=== PATIENT | female | born 1985 | race Hispanic/Latino ===

== ENCOUNTER 2019-06-18 13:15 | Day surgery (SDC) | payer OTHER ==
[2019-06-18 13:48] VITALS: BP 111/65; TEMP 98; BMI 27.9
[2019-06-18] MEDS ORDERED: hydrALAZINE 20 MG/ML VIAL SLOW IVP PRN (14:38)
--- NOTE | 2019-06-18 14:50 | PDOC.LDHP ---
Labor and Delivery H&P Allergies/Adverse Reactions: Allergies Allergy/AdvReac Type Severity Reaction Status Date / Time No Known Allergies Allergy Verified 06/18/19 13:39
[2019-06-18 15:48] LABS: Bacteria/HPF None Seen HPF (None Seen); Bilirubin Negative (Negative); Blood, Urine Negative (Negative); Clarity Clear (Clear); Glucose, Urine (Dipstick) Normal (Negative); Leukocyte Negative Leu/uL (Negative); Nitrite Negative (Negative); Protein, Urine (Dipstick) Negative (Neg-Trace); RBC/HPF 0-3 HPF (0-3); Squamous Epithelial 0-3 HPF (0-3); Urobilinogen Normal mg/dL (Less than 2); WBC/HPF 0-3 HPF (0-3)
--- NOTE | 2019-06-18 16:10 | ULT ---
BIOPHYSICAL PROFILE: 06/18/19 HISTORY: Vaginal bleeding. A single viable intrauterine in a cephalic presentation is noted. The placenta is anterior in location without evidence of previa. Visually the amniotic fluid appears slightly decreased with a n amniotic fluid index of 5.0. There is a pocket of fluid greater than 2 cm and therefore the fluid score is 2 on a biophysical profile score. movements scores 2, breathing 2 and tone 2. heart rate is 145 beats per minute. IMPRESSION: Single viable intrauterine . biophysical profile score is 8 of a possible 8 by definit ion; however, note is made of oligohydramnios. POS: [facility]
--- NOTE | 2019-06-18 18:42 | PDOC.FPROB ---
FMR OB H&P: HPI - History of Present Illness Chief Complaint: Vag bleeding History of Present Illness: 34 y/o F , @ 37.4 weeks dated by LMP, confirmed by 11.2 wk sono, presents to L&D for vaginal bleeding that started last overnight. She states she had vaginal bleeding when she got up to go urinate. Mucus and bloody in character. Present when wiping. Pt had BM and blood on tissue when wiping this AM, while at work. Pt has present external hemorrhoids, non- painful. Placed pad in panties after that event and no blood was present from that point on. Denies any intercourse recently. States she has had vag discharge, milky and white in character for about 1 week now. Denies vag itching, or pain. Feels baby moving. Denies LOF. States she is having contraction every 15-20 minutes irregularly. Primary Care Physician: PNC FMR OB H&P: Current - Care : 8 Para: 5 Gestational age: 37.4 Due date: 07/05/19 Dating Criteria: LMP confirmed by 11.2 wk sono - OB Labs Blood type: O RH: positive Antibody Screen: negative HIV: negative RPR: negative HepBsAg: negative Rubella: immune Gonorrhea: negative Chlamydia: negative Pap Smear: NILM, HPV neg 1 hour gtt: 79 GBS: unknown (swabbed in Clinic) H&H: 10.0/30.5 - Anatomy Survey Anatomy survey: [place] 78.8% - Additional Ultrasound Additional: 06/18/19 in L&D: BPP 04/28: Cephalic presentation, anterior placenta not near the os, [place] 5. NST reactive. 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 - Social History Social History: denies drug, etoh, or cigarette use. FMR OB H&P: Medications - Current Home Medications: Medication Instructions Recorded Confirmed Type Pnv No.95/Ferrous Fum/Folic AC 1 each PO DAILY 06/18/19 06/18/19 History [ Caplet] Allergies/Adverse Reactions: Allergies Allergy/AdvReac Type Severity Reaction Status Date / Time No Known Allergies Allergy Verified 06/18/19 13:39 FMR OB H&P: ROS - Review of Systems General: denies: fever/chills, weight/appetite/sleep changes Eyes: denies: eye pain, double vision ENT: denies: nasal congestion, sinus pain/pressure Cardiovascular: denies: chest pain, edema Respiratory: denies: cough, shortness of breath Gastrointestinal: denies: abdominal pain, bloating, vomiting, diarrhea, constipation Genitourinary (Female): reports: vaginal discharge, contractions. denies: incontinence, dysuria, hematuria, polyuria, vaginal pain, vaginal pressure Musculoskeletal: denies: pain, arthritis/arthralgias Neurologic: denies: numbness, seizures Integumentary: denies: itching, rash Endocrine: denies: polydipsia, polyuria FMR OB H&P: Vital Signs - Maternal Vital signs: Vital Signs - First Documented Temp Pulse Resp BP 98.0 F 71 18 111/65 06/18/19 13:25 06/18/19 13:25 06/18/19 13:25 06/18/19 13:25 - Heart Tones Baseline: 130 Variability: moderate [place] contractions every: 15 min FMR OB H&P: Physical Exam - Physical Exam General: NAD, awake, alert and oriented HEENT: normocephalic and atraumatic, PERRLA, EOMI, MMM, conjunctiva clear, no scleral icterus, grossly normal vision, grossly normal hearing, oropharynx clear Neck: supple, FROM, trachea midline, no LAD, no JVD Chest: non-tender to palpation, no lesions Heart: RRR, normal S1/S2, no murmurs/rubs/gallops, pulses present, no edema General: CTAB, no respiratory distress, good air movement, no rales/rhonchi, no wheezing, no retractions Abdomen: soft, gravid, non-tender, bowel sound present, no masses, no hernias Musculoskeletal: normal gait and station, pulses present, FROM in all four extremities, no misalignment/asymmetry, no atrophy Neurological: cranial nerves II through XII intact, sensation to pain,touch and proprioception grossly normal, no clonus, no tremor, no focal deficit Skin: no rash, good tugor, capillary refill <2 seconds, no jaundice Lymphatic: no unusual bruising or bleeding, no purpura, no petechia Psychiatric: intact recent and remote memory, good judgement and insight, normal mood and affect - Pelvic Exam Vulva: normal hair distribution Cervix: no masses Deviation from normal: mucus, bloody show SVE: /-3 Membranes: intact Presentation: cephalic FMR OB H&P: Results - Labs Lab results: Laboratory Results - last 24 hr 06/18/19 15:15 Urine Color Light-Yellow Urine Clarity Clear Urine pH 6.5 Ur Specific [place] 1.015 Urine Protein Negative Urine Glucose (UA) Normal Urine Ketones 60 A Urine Blood Negative Urine Nitrite Negative Urine Bilirubin Negative Urine Urobilinogen Normal Ur Leukocyte Esterase Negative Urine RBC 0-3 Urine WBC 0-3 Ur Squamous Epith Cells 0-3 Urine Bacteria None Seen - Imaging Imaging: BPP: 04/28 NST reactive Anterior placenta not close to internal cervical os. FMR OB H&P: A/P - Problem List (1) Supervision of normal IUP (intrauterine ) in multigravida Status: Acute Code(s): Z34.80 - ENCOUNTER FOR SUPRVSN OF NORMAL , UNSP TRIMESTER (2) Vaginal bleeding during Status: Acute Code(s): O46.90 - ANTEPARTUM HEMORRHAGE, UNSPECIFIED, UNSPECIFIED TRIMESTER (3) Vaginal discharge during in third trimester Status: Acute Code(s): O26.893 - OTH RELATED CONDITIONS, THIRD TRIMESTER; N89.8 - OTHER SPECIFIED NONINFLAMMATORY DISORDERS OF VAGINA Disposition: stable. Counseled on return if increase in contraction pain, intensity, and consistent frequency. Return if vaginal bleeding or LOF. Discussion: Date/Time: 06/18/19 1838 34 y/o F , at 37.4 wks gestation presenting to L&D for vaginal bleeding evaluation. 1. Term IUP at 37.4 wks - BPP 04/28 - NST reactive, FHT's 130 baseline. - SVE: /-3 - Sterile spec exam: mucus, bloody show. - UA negative - [place]: Q15 min contractions 2. Vaginal Bleeding - Most likely from cervical preparation for nearing delivery time - Anterior placenta not near the internal cervical os. - Non-tender abdomen and uterus. - SVE: /-3 - Sterile spec exam: mucus, streaked with bloody show. - Pt counseled to return if vaginal bleeding increases, contractions are painful , closer together, and consistent. 3. Vaginal Discharge - VP3 pending - Appeared normal in character. This H&P was discussed with Dr. Michel and Dr. Palma who agree with the above documentation and plan. Addendum - Attending - Attending Attestation Date/Time: 06/19/19 0667 I personally evaluated the patient and discussed the management with Dr. Graland yesterday. I agree with the History, Examination, Assessment and Plan documented above with any addition or exceptions noted below. Clinical evaluation/exam revealed no evidence of placenta previa or abrution, vasa previa or vaginal mass as causes of bleeding. Etiology is best explained as bloody show. eval normal.
== END 2019-06-18 17:05 | disposition home or self-care (01) ==
LOC: L&D/OP 13:15
PROVIDERS: ATTEND Family Medicine
DX: O46.93 Antepartum hemorrhage, unspecified, third trimester (principal); O26.893 Other specified pregnancy related conditions, third trimester; N89.8 Other specified noninflammatory disorders of vagina; O99.613 Diseases of the digestive system complicating pregnancy, third trimester; K64.4 Residual hemorrhoidal skin tags; Z3A.37 37 weeks gestation of pregnancy
CPT/HCPCS: 51701; 76819; 81003; 99284

== ENCOUNTER 2019-06-20 04:57 | Inpatient (IN) | payer OTHER ==
[2019-06-20 05:23] VITALS: BMI 27.9
--- NOTE | 2019-06-20 05:58 | PDOC.FPROB ---
FMR OB H&P: HPI - History of Present Illness Chief Complaint: Contractions Indentification: History of Present Illness: 34 yo female @ 37.6 wks dated by LMP confirmed with 11.2 wk sono, due date 07/05/19 presented with painful contractions, q4-5 mins. She did not experience excessive vaginal fluid, ROM; endorsed light, bloody, mucous discharge. She is GBS unknown but swabbed on 06/16/19 at [facility]. Pt presented on for contractions, /-3 w/o cervical change, BPP 8/8, cephalic presentation, and anterior placenta. She denies B[place]AMANTE, fevers, chills, vision changes, chest pain, abdominal pain other than contractions, SOB. 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 - Surgical History Sx History: Tubal Ligation with reversal - Social History Social History: Denies drug use, tobacco use; Endorsed occasional alcohol use during - Family History Family History: non-contributory FMR OB H&P: Medications - Current Home Medications: Medication Instructions Recorded Confirmed Type Pnv No.95/Ferrous Fum/Folic AC 1 each PO DAILY 06/18/19 06/20/19 History [ Caplet] Docusate Calcium [Surfak] 240 mg PO BID #60 cap 06/21/19 Rx Ferrous Sulfate [Feosol] 325 mg PO BID-WM #60 tab 06/21/19 Rx Allergies/Adverse Reactions: Allergies Allergy/AdvReac Type Severity Reaction Status Date / Time No Known Allergies Allergy Verified 06/18/19 13:39 FMR OB H&P: ROS - Review of Systems General: denies: fever/chills, weight/appetite/sleep changes Eyes: denies: eye pain, vision changes ENT: denies: nasal congestion, rhinorrhea Cardiovascular: denies: chest pain, palpitation, edema Respiratory: denies: cough, congestion, shortness of breath Gastrointestinal: denies: abdominal pain, nausea, vomiting, diarrhea, constipation Genitourinary (Female): reports: contractions. denies: incontinence, hematuria , polyuria, vaginal pain Musculoskeletal: denies: pain, stiffness Neurologic: denies: numbness, syncope, weakness Psychological: denies: depression, anxiety FMR OB H&P: Vital Signs - Maternal Vital signs: Vital Signs - First Documented Temp Pulse Resp BP Pulse Ox 98.3 F 77 18 137/78 100 06/20/19 05:06/20/19 05:06/20/19 05:06/20/19 05:06/20/19 05:17 - Heart Tones Variability: moderate Acceleration: absent Deceleration: absent Category: category 1 [place] contractions every: 4-5 mins FMR OB H&P: Physical Exam - Physical Exam General: NAD, awake, alert and oriented HEENT: normocephalic and atraumatic, EOMI Neck: FROM, trachea midline Chest: non-tender to palpation, no lesions Heart: RRR, normal S1/S2, no edema General: CTAB, no respiratory distress, no wheezing Abdomen: soft, non-tender, bowel sound present Musculoskeletal: normal gait and station, pulses present, FROM in all four extremities Neurological: cranial nerves II through XII intact, sensation to pain,touch and proprioception grossly normal Skin: no rash, capillary refill <2 seconds Lymphatic: no purpura, no petechia Psychiatric: good judgement and insight, normal mood and affect - Pelvic Exam Membranes: Intact Presentation: Cephalic FMR OB H&P: A/P - Problem List (1) Supervision of normal IUP (intrauterine ) in multigravida Status: Acute Code(s): Z34.80 - ENCOUNTER FOR SUPRVSN OF NORMAL , UNSP TRIMESTER Disposition: Pt is a 34 at 37.6 wks dated via LMP confirmed by 11.2 week sono who presents with painful contractions, intact membranes. # IUP, multigravida Ant Placenta, cephalic, /-3 on 06/18 590/0 at 0500, painful contractions q4-5 mins, membranes intact Cat 1 - routine care - GBS unknown - pending lab results. Nurse calling for results. - Oxytocin post-delivery for precaution - post- hemorrhage in multigravida - type and cross 2 U # GBS Unknown - as above Fluids: LR 125 mls/hr Diet: NPO Code: Full Dispo: stable, admit for routine delivery, likely repeat . Discussion: Date/Time: 06/20/19 0557 Faculty: Please see my separate H&P attestation. -Adia
[2019-06-20] MEDS ORDERED: Butorphanol Tartrate 1 MG/ML VIAL SLOW IVP PRN (06:13)
[2019-06-20] MEDS ORDERED: Ondansetron PF 4 MG/2 ML Vial IVP PRN ×2 (06:13→07:41)
[2019-06-20] MEDS ORDERED: hydrALAZINE 20 MG/ML VIAL SLOW IVP PRN ×2 (06:13→09:36)
[2019-06-20] MEDS ORDERED: Promethazine HCl 25 MG/ML VIAL IM PRN ×2 (06:13→07:41)
[2019-06-20] MEDS: Lactated Ringer's 1,000 ML IV SCH ×2 (06:15→08:30)
[2019-06-20] MEDS ORDERED: Ibuprofen 800 MG TAB PO PRN (06:17)
[2019-06-20] MEDS ORDERED: NS / Oxytocin 40 units/1000ml 1,000 ML IV PRN (06:17)
[2019-06-20] MEDS ORDERED: Lidocaine 1% (PF) 30 ML VIAL SC PRN (06:17)
--- NOTE | 2019-06-20 06:28 | PDOC.EVN ---
Event Note - Event Note Event Note: H&P Marsha ANSARI Attending PNC patient Patient first seen by Resident team I have seen the patient at bedside CC: Patient is a 34 yo here with CTX. HPI: (all SVDs) with spont onset of labor. No LOF, no VB Past Med: neg Past Surgical: BTL reversal Physical: VSSafebrile CX 5/90/0 Monitors: Cat 1, regular CTX every 2-3 min GBS result pending lab call (not in chart) A/P: Grand multip in lbar. 1. Admit 2. T&C x 2 units due to grand-multip state 3. Check GBS result from lab 4. cytotec in room post delivery
[2019-06-20] MEDS ORDERED: Fentanyl 4 mcg/Bup 0.1% Cadd 100 ML ONE (06:57)
[2019-06-20 07:06] LABS: Hemoglobin 11.6 g/dL (12.0-16.0); Mean Corpuscular HGB CONC 33.3 g/dL (32.0-36.0); Mean Corpuscular Hemoglobin 24.7 pg (27.0-31.0); Mean Corpuscular Volume 74.2 fL (78.0-98.0); Mean Platelet Volume 12.3 fL (7.4-10.4); Platelet Count 123 thou/uL (130-400); RBC Distribution Width 16.6 % (11.5-14.5); Red Blood Cell (RBC) Count 4.69 mill/uL (4.20-5.40); White Blood Cell (WBC) Count 11.2 thou/uL (4.8-10.8)
[2019-06-20] MEDS ORDERED: Naloxone HCl 0.4 mg/ml Vial IVP PRN ×2 (07:41)
[2019-06-20] MEDS ORDERED: diphenhydrAMINE 50 MG/ML VIAL IVP PRN (07:41)
[2019-06-20] MEDS ORDERED: Acetaminophen 325 MG TAB PO PRN (07:41)
[2019-06-20] MEDS ORDERED: ePHEDrine/0.9% NaCl/PF SYRINGE 50 mg/10 ml SLOW IVP PRN (07:41)
[2019-06-20] MEDS ORDERED: Lactated Ringer's 500 ML IV PRN (07:41)
[2019-06-20] MEDS ORDERED: Communication Order-Pharmacy FS SCH (07:45)
[2019-06-20] MEDS ORDERED: Fentanyl 4 mcg/Bupivacaine 0.1% Cassette 100 ML EPIDURAL SCH (07:45)
--- NOTE | 2019-06-20 08:31 | PDOC.LDPN ---
Labor & Delivery Progress Note - Subjective Subjective: comfortable, painful contractions, loss of fluid - Objective Vital signs reviewed and normal: yes General: NAD, resting, breathing through contractions Uterine fundus: non tender Dilation: 8 Effacement: 100% Station: 0 FHT: category 1 (accels present, no decels, baseline HR 130, moderate variability), variability present [place] contractions every: 4mins - Assessment (1) Supervision of normal IUP (intrauterine ) in multigravida Code(s): Z34.80 - ENCOUNTER FOR SUPRVSN OF NORMAL , UNSP TRIMESTER Current Visit: No Status: Acute Plan: continue plan of care, pitocin for augmentation -: 34yo @ 37.6 wks by LMP c/w 11.2 wk sono, due date 07/05/19, presented with painful contractions and bloody show, admitted for active labor. #SIUP, active labor - @37.6 by LMP c/w 11.2wk sono presents in active labor - SROM @ 0656 prior to epidural placement - Epidural in place - /0 @ 0750 - Cat 1 strip, Baseline 130, accels present, no decels, moderate variability; contractions q4min - on pit, cont to titrate appropriately #Grandmultiparity - high risk for PPH - no history of HTN/Asthma - will place cytotec prophylactically post - will monitor closely for PPH #GBS status unknown - Swabbed on 06/16 at [facility], called and spoke with staff, results not yet back - Spoke with pt, no known history of GBS positive or any antibiotics in previous pregnancies, low risk and >37wks - No abx at this time, will monitor mom and baby - Will obtain records later once resulted IVF: LR @125cc/hr Diet: NPO Code: Full Dispo: Admitted to L&D for active labor, epidural placed, augmentation with pit , will monitor closely, anticipate and monitor for PPH. Above plan discussed with Dr. Vieira.
[2019-06-20] MEDS ORDERED: Misoprostol 200 MCG TAB ONE (09:13)
[2019-06-20] MEDS ORDERED: Misoprostol 100 MCG TAB ONE (09:14)
[2019-06-20] MEDS: NS / Oxytocin 40 units/1000ml 1,000 ML IV SCH ×2 (09:25→10:45)
[2019-06-20] MEDS ORDERED: Milk Of Magnesia 30 ML UDCUP PO PRN (09:36)
[2019-06-20] MEDS ORDERED: Preparation H Ointment 28 GM TUBE PR PRN (09:36)
[2019-06-20] MEDS ORDERED: Benzocaine-Menthol 82.5 ML CAN TOP PRN (09:36)
[2019-06-20] MEDS ORDERED: Bisacodyl 10 MG SUPP PR PRN (09:36)
[2019-06-20] MEDS ORDERED: Lanolin Ointment 7 GM TUBE TOP PRN (09:36)
--- NOTE | 2019-06-20 11:36 | PDOC.OPDEL ---
OB Operative/Delivery Note Delivery Dr/Surgeon: Janet Assist: Wiliam Pre-Delivery Diagnosis: active labor, ruptured membrane Procedure/Post Delivery Dx: spontaneous vaginal delivery Weeks gestation: 37 (37.6) Anesthesia: epidural - Findings A Sex: female Weight: 2.722 kg - 1 min: 9 - 5 min: 9 - Additional Findings/Plan Placenta delivered: spontaneous Repaired Obstetrical Laceration: none Estimated blood loss: 25cc Compilations/Other Findings: This is a 34 year old female @ 37.6wks by LMP w/c 11.2wk sono who delivered a viable F infant at 0920. Following an uneventful antepartum course, a vigorous female was delivered over an intact perineum in the occipitoanterior position. Anterior Shoulder and then remainder of the body delivered. Nuchal cord x1 was reduced at the perineum. The head was held down and mouth and nares were bulb suctioned. Cord clamped and cut and cord blood collected. Placenta delivered intact, [place] presentation, with a 3 vessel cord noted. Fundal massage was performed and the fundus was firm. The cervix and vagina were inspected and found to be free of lacerations. Infant went to nursery in good condition for routine care. Apgars were 9/9 at 1 & 5 minutes, respectively. Patient tolerated delivery well and went to after routine recovery/care. QBL 25cc. Post delivery plan: routine recovery
[2019-06-20] MEDS ORDERED: Adacel (T-DAP) 0.5 ML SYRINGE IM ONE (12:00)
[2019-06-20] MEDS ORDERED: Lidocaine 2% MPF 10 ML AMP (For Epidural Use) ONE (15:00)
[2019-06-20] MEDS: Ibuprofen 800 MG TAB PO SCH ×2 (17:42→21:41)
[2019-06-20] MEDS: Ferrous Sulfate 325 MG TAB PO SCH (17:43)
[2019-06-20] MEDS: Docusate Calcium (SURFAK) 240 MG CAP PO SCH (21:41)
[2019-06-21] MEDS: Ibuprofen 800 MG TAB PO SCH ×2 (05:52→13:41)
--- NOTE | 2019-06-21 07:18 | PDOC.PP ---
Post Progress Note Post Day #: 1 Subjective: Pt is doing well this morning. No concerns or complaints, no acute events overnight. She is tolerating PO well, without n/v. Denies fever/chills. Ambulating without difficulty. Voiding without difficulty. +flatus without BM yet. Lochia is minimal spotting. Pain well-controlled with Motrin. She is eager for discharge. PO intake tolerated: yes Flatus: yes Ambulation: yes Vital Signs (12 hours) Temp Pulse Resp BP Pulse Ox 06/21/19 05:30 98.3 F 69 18 97/50 L 06/21/19 00:25 98.2 F 68 18 95/48 L 06/20/19 21:13 99 06/20/19 19:33 97.9 F 88 12 99/59 L 99 Weight Weight 67.132 kg - Physical Examination General: NAD Cardiovascular: no m/r/g, RRR Respiratory: clear to auscultation bilaterally, non-labored breathing Abdominal: + bowel sounds, lochia (spotting), no distention, appropriately TTP Fundus firm & at: level of umbilicus Extremities: negative homans (B) (no LE edema) Neurological: no gross focal deficits Psychiatric: A&Ox3, normal affect Result Diagrams: 06/20/19 06:19 Additional Labs: Post Labs Blood Type O POSITIVE 06/20/19 06:19 (1) Supervision of normal IUP (intrauterine ) in multigravida Code(s): Z34.80 - ENCOUNTER FOR SUPRVSN OF NORMAL , UNSP TRIMESTER Status: Acute - Assessment/Plan 34yo @ 37.6 wks by LMP c/w 11.2 wk sono, due date 07/05/19, presented in labor, now s/p PPD#1. #PPD#1 s/p - @37.6 by LMP c/w 11.2wk sono - Delivered @ 0920 on 06/20. No lacs or complications. QBL 25cc - doing well this morning, no concerns or complaints, eager for discharge - continue routine care #GBS status unknown - Swabbed on 06/16 at [facility], called and spoke with staff on 06/20, results not yet back - Spoke with pt, no known history of GBS positive or any antibiotics in previous pregnancies, low risk and >37wks - Will call and try to obtain results today IVF: SL Diet: Regular Code: Full Dispo: PPD#1, pt eager for discharge. Plan for d/c today pending clinical course and baby's bili. Above plan discussed with Dr. Ch
[2019-06-21 09:44] VITALS: BP 110/59; TEMP 97.9
[2019-06-21] MEDS: Ferrous Sulfate 325 MG TAB PO SCH (10:40)
[2019-06-21] MEDS: Docusate Calcium (SURFAK) 240 MG CAP PO SCH (10:40)
== END 2019-06-21 14:15 | disposition home or self-care (01) | DRG 806 ==
LOC: L&D/OP 04:57 → L&D 05:59 → 3SW 12:50
PROVIDERS: ADMIT Obstetrics & Gynecology; ATTEND Obstetrics & Gynecology
PROC: 10E0XZZ Delivery of Products of Conception, External Approach (ICD-10-PCS; principal; 2019-06-20)
DX: O69.81X0 Labor and delivery complicated by cord around neck, without compression, not applicable or unspecified (principal); O72.1 Other immediate postpartum hemorrhage; Z37.0 Single live birth; O99.02 Anemia complicating childbirth; D64.9 Anemia, unspecified; Z3A.37 37 weeks gestation of pregnancy
CPT/HCPCS: 36415; 51702; 85027; 86850; 86900; 86901; 99285; J2001

== ENCOUNTER 2023-08-03 07:50 | Emergency (ER) | payer MEDICAID, OTHER ==
[2023-08-03 08:19] LABS: #Basophils 0.1 thou/uL (0.0-0.2); #Eosinphils 0.2 thou/uL (0.0-0.7); #Monocytes 0.5 thou/uL (0.11-0.59); #Neutrophils 7.7 thou/uL (1.40-6.50); %Basophils 0.5 % (0.0-1.0); %Eosinophils 2.1 % (0.0-10.0); %Lymphocytes 19.2 % (21.0-51.0); %Monocytes 4.8 % (0.0-10.0); %Neutrophils 72.9 % (42.0-75.0); Hemoglobin 13.9 g/dL (12.0-16.0); Mean Corpuscular HGB CONC 33.1 g/dL (32.0-36.0); Mean Corpuscular Hemoglobin 28.5 pg (27.0-31.0); Mean Corpuscular Volume 86.1 fl (78.0-98.0); Mean Platelet Volume 12.4 fL (7.4-10.4); Platelet Count 200 10x3/uL (130-400); RBC Distribution Width 12.6 % (11.5-14.5); Red Blood Cell (RBC) Count 4.88 mill/uL (4.20-5.40); White Blood Cell (WBC) Count 10.6 10x3/uL (4.8-10.8)
[2023-08-03] MEDS ORDERED: Ketorolac Tromethamine 30 MG/ML VIAL ONE (08:27)
[2023-08-03] MEDS ORDERED: Ondansetron PF 4 MG/2 ML Vial ONE (08:27)
[2023-08-03] MEDS ORDERED: Morphine 4 MG/ML VIAL ONE (08:27)
[2023-08-03 08:29] LABS: BHCG - Serum Negative (NEGATIVE); Pregs Control Background? CLEAR/WHITE (CLR/WHITE); Pregs Control Bar Appear? YES (CONTROL BAR)
[2023-08-03 08:41] LABS: ALT (SGPT) 13 U/L (8-55); AST (SGOT) 17 U/L (5-34); Albumin 4.6 g/dL (3.5-5.0); Alkaline Phosphatase 73 U/L (40-110); Anion Gap 9 mmol/L (10-20); BUN (Urea Nitrogen) 14 mg/dL (7.0-18.7); Bilirubin, Total 0.3 mg/dL (0.2-1.2); Calc. Creatinine Clearance 0 mL/min (70-130); Calcium 9.5 mg/dL (7.8-10.44); Carbon Dioxide 27 mmol/L (22-29); Chloride 104 mmol/L (98-107); Estimated GFR 115; Globulin 2.8 g/dL (2.4-3.5); Glucose 107 mg/dL (70-105); Lipase 30 U/L (8-78); Potassium 3.8 mmol/L (3.5-5.1); Protein, Total 7.4 g/dL (6.0-8.3); Sodium 136 mmol/L (136-145)
[2023-08-03 08:48] LABS: Bilirubin Negative (Negative); Blood, Urine Negative (Negative); Clarity Clear (Clear); Glucose, Urine (Dipstick) Normal (Negative); Ketone, Urine Negative (Negative); Leukocyte Negative Leu/uL (Negative); Nitrite Negative (Negative); Protein, Urine (Dipstick) Negative (Neg-Trace); Specific Gravity, Urine 1.023 (1.002-1.036); Urobilinogen Normal mg/dL (Less than 2)
[2023-08-03 09:01] LABS: Bacteria/HPF Rare-Few HPF (None Seen); CAUTI Indications for Culture Pelvic or flank pain; RBC/HPF None Seen HPF (0-3); WBC/HPF None Seen HPF (0-3)
[2023-08-03 09:02] LABS: Urine Culture Reflex No No
[2023-08-03] MEDS ORDERED: Iopamidol-370 76% 500 ML MDV (1 ML CHARGE) ONE (09:13)
[2023-08-03] MEDS ORDERED: Dicyclomine 20 MG TAB ONE (09:40)
[2023-08-03] MEDS ORDERED: Lidocaine 2% Viscous Solution 10 ML, Aluminum & Magnesium Hydroxide 30 ML SSW SCH (09:45)
== END 2023-08-03 12:13 | disposition home or self-care (01) ==
LOC: ERS 07:50
DX: K29.00 Acute gastritis without bleeding (principal); K27.9 Peptic ulcer, site unspecified, unspecified as acute or chronic, without hemorrhage or perforation; F17.290 Nicotine dependence, other tobacco product, uncomplicated
CPT/HCPCS: 36415; 74177; 80053; 81001; 83690; 84703; 85025; 93005; 96361; 96374; 96375; J1885; J2270; J2405; Q9967

== ENCOUNTER 2025-06-01 20:43 | Emergency (ER) | payer SELFPAY ==
[2025-06-01] MEDS ORDERED: Metoclopramide HCl 10 MG (2 mL) VIAL ONE (23:26)
[2025-06-01] MEDS ORDERED: Ketorolac Tromethamine 30 MG (1 mL) VIAL ONE (23:26)
[2025-06-01 23:39] LABS: BHCG - Serum Negative (NEGATIVE); Pregs Control Background? CLEAR/WHITE (CLR/WHITE); Pregs Control Bar Appear? YES (CONTROL BAR)
[2025-06-01 23:45] LABS: #Basophils 0.03 10x3/uL (0.0-0.2); #Eosinophils Less than 0.03 10x3/uL (0.0-0.7); #Monocytes 0.21 10x3/uL (0.11-0.59); #Neutrophils 7.47 10x3/uL (1.40-6.50); %Basophils 0.3 % (0.0-1.0); %Eosinophils 0.0 % (0.0-10.0); %Lymphocytes 11.3 % (21.0-51.0); %Monocytes 2.4 % (0.0-10.0); %Neutrophils 85.8 % (42.0-75.0); ALT (SGPT) 19 U/L (Less than 34); AST (SGOT) 27 U/L (11-34); Albumin 4.2 g/dL (3.1-4.5); Alkaline Phosphatase 69 U/L (40-110); Anion Gap 16 mmol/L (10-20); BUN (Urea Nitrogen) 9 mg/dL (7.0-18.7); Bilirubin, Total 0.3 mg/dL (0.3-1.2); Calc. Creatinine Clearance 0 mL/min (70-130); Calcium 9.2 mg/dL (7.8-10.44); Carbon Dioxide 22 mmol/L (22-29); Chloride 106 mmol/L (98-107); Globulin 3.3 g/dL (2.4-3.5); Glucose 113 mg/dL (70-105); Hematocrit 39.2 % (36.0-47.0); Hemoglobin 12.8 g/dL (12.0-16.0); Mean Corpuscular Hemoglobin 26.5 pg (27.0-31.0); Mean Corpuscular Volume 81.2 fL (78.0-98.0); Platelet Count 187 10x3/uL (130-400); Potassium 4.3 mmol/L (3.5-5.1); Red Blood Cell (RBC) Count 4.83 mill/uL (4.20-5.40); Sodium 140 mmol/L (136-145); White Blood Cell (WBC) Count 8.71 10x3/uL (4.8-10.8)
== END 2025-06-02 00:54 | disposition home or self-care (01) ==
LOC: ERS 20:43
DX: L01.00 Impetigo, unspecified (principal)
CPT/HCPCS: 80053; 84703; 85025; 87428; 96361; 96374; 96375; J1885; J2765